=== PATIENT | male | born 1975 | race Caucasian/White ===

== ENCOUNTER → 2021-11-03 | Outpatient (CLI) | payer BC ==
[~2021-11-03] MED LIST: FLOMAX0.4 MG PO; LEVAQUIN 250MG250 MG PO; NO HOME MEDICATIONS; PERCOCET 325 MG1 TA2 PO
== END ==
LOC: ZCOL.LAB 15:26
DX: U07.1 COVID-19 (principal)

== ENCOUNTER 2023-12-11 14:02 | Emergency (ER) | payer BC ==
[~2023-12-11] VITALS: Ht 175.3 cm; Wt 79.5 kg
[2023-12-11 14:07] VITALS: BP 117/73; TEMP 97.5
[2023-12-11 16:17] VITALS: PULSE 63
== END 2023-12-11 16:17 | disposition home or self-care (01) ==
LOC: COL.ER 14:02
DX: S61.511A Laceration without foreign body of right wrist, initial encounter (principal); W26.0XXA Contact with knife, initial encounter